=== PATIENT | female | born 1970 | race Caucasian/White ===

== ENCOUNTER 2019-04-06 19:09 | Emergency (ER) | payer OTHER ==
--- NOTE | 2019-04-06 19:57 | RAD ---
Radiograph left foot 3 views: 04/06/2019 HISTORY: 49-year-old female status post traumatic injury to the left foot FINDINGS: No acute fracture or dislocation. IMPRESSION: Negative
--- NOTE | 2019-04-06 20:04 | RAD ---
Radiograph left elbow 2 views: 04/06/2019 at 7:56 PM HISTORY: 49-year-old female status post left elbow injury. FINDINGS: Please note that in general, for trauma of joints, at least a 3 view, and preferably a 4 view, radiog raph is recommended for better sensitivity in the detection of nondisplaced or minimally displaced fractures. There is focal soft tissue swelling and edema at the medial aspect of the elbow. There is a questionable mildly displaced anterior fat pad sign. No fracture is identified. No radiopaque foreign body. No dislocation. IMPRESSION: 1. Soft tissue injury at medial aspect of elbow. 2. No fracture identified.
== END 2019-04-06 20:20 | disposition home or self-care (01) ==
LOC: MADERS 19:09
DX: S53.402A Unspecified sprain of left elbow, initial encounter (principal); S90.32XA Contusion of left foot, initial encounter; W18.30XA Fall on same level, unspecified, initial encounter